=== PATIENT | male | born 1995 | race Caucasian/White ===

== ENCOUNTER 2022-02-03 06:40 | Emergency (ER) | payer BC ==
[~2022-02-03] VITALS: Ht 172.7 cm; Wt 103.4 kg
[2022-02-03 06:47] VITALS: BP_SYST 153
--- NOTE | 2022-02-03 06:51 | NUR ---
TOOK PATIENT TO ROOM 8, C/O RT FALNK PAIN PT STATED HE WOKE UP WITH PAIN RADIATES TO RLQ. DENIES N/V/D, DENIES FEVER,-DYSURIA.
--- NOTE | 2022-02-03 06:53 | NUR ---
REPORT GIVEN TO CARA.
[2022-02-03] MEDS ORDERED: KETOROLAC TROMETHAMINE 30 MG VIAL IVP ONE (07:00)
[2022-02-03] MEDS ORDERED: NACL 0.9% 1,000 ML IV ONE (07:00)
--- NOTE | 2022-02-03 07:30 | NUR ---
PATIENT CAME IN AT 0655 C/O SEVERE RIGHT FLANK PAIN, PIV INSERTED TO LEFT FORE ARM AND MEDICATED FOR PAIN ORDERED, BP 133/80, HR70,,RR35, O2SAT 100 ARDWSH34.7, ENDORSED TO AM RN
[2022-02-03 07:36] LABS: CALCIUM 8.9 mg/dL (8.4-11.0); CREATININE 1.03 mg/dL (0.55-1.30); POTASSIUM 3.4 mmol/L (3.5-5.1)
--- NOTE | 2022-02-03 07:41 | NUR ---
ER at bedside examining patient.
[2022-02-03 07:42] LABS: ALBUMIN 3.9 g/dL (3.4-4.8); TOTAL BILIRUBIN 1.2 mg/dL (0.0-1.0)
--- NOTE | 2022-02-03 07:45 | NUR ---
Assumed care of pt and pt is in bed connected to athletic monitor. VSS. Pt c/o right flank pain that started abruptly yesterday and rates pain 10/10 still even after getting toradol. NKA. No kown medical conditions. Pt is A&Ox4. No chest pain and no sob. Denies n/v. Bed in lowest posiiton.
[2022-02-03 07:59] LABS: BASOPHILS # (AUTO) 0.1 K/uL (0.0-0.2); BASOPHILS % (AUTO) 0.8 % (0.0-2.0); EOSINOPHILS # (AUTO) 0.1 K/uL (0.0-0.4); EOSINOPHILS % (AUTO) 1.6 % (0.0-4.0); LYMPHOCYTES # (AUTO) 2.1 K/uL (1.0-5.5); LYMPHOCYTES % (AUTO) 31.7 % (20.5-51.5); MONOCYTES # (AUTO) 0.5 K/uL (0.0-1.0); MONOCYTES % (AUTO) 8.2 % (1.7-9.3); NEUTROPHILS # (AUTO) 3.8 K/uL (1.8-7.7); NEUTROPHILS % (AUTO) 57.7 % (40.0-70.0); RED BLOOD CELL COUNT(AUTO) 5.55 MIL/uL (4.2-6.2); WHITE BLOOD COUNT (AUTO) 6.7 K/uL (4.8-10.8)
[2022-02-03] MEDS ORDERED: MORPHINE 4 MG INJ. 4 MG/ML VIAL IVP ONE ×2 (08:00→08:30)
[2022-02-03] MEDS ORDERED: PROCHLORPERAZINE EDISYLATE 10 MG/2 ML VIAL IVP ONE (08:00)
[2022-02-03 08:01] LABS: HEMOGLOBIN 16.6 g/dL (14.0-18.0); MEAN CORPUSCULAR HEMOGLOBIN 30 pg (27-31); MEAN CORPUSCULAR HGB CONC 35 % (32-36); MEAN CORPUSCULAR VOLUME 85 fL (79.0-98.0); PLATELET COUNT (AUTO) 188 K/uL (130-430); RED CELL DISTRIBUTION WIDTH 12.9 % (9.0-15.0)
--- NOTE | 2022-02-03 08:08 | NUR ---
Patient transported to radiology ambulatory with steady gait, accompanied by contact lens technician.
--- NOTE | 2022-02-03 08:12 | NUR ---
Returned from radiology, back to [facility].
[2022-02-03] MEDS ORDERED: DIPHENHYDRAMINE INJ 50 MG/ML VIAL IVP ONE (08:30)
[2022-02-03] MEDS ORDERED: HYDR-3917 PO (09:10)
[2022-02-03 09:19] VITALS: BP_SYST 128
--- NOTE | 2022-02-03 09:20 | NUR ---
Patient given written and verbal discharge instructions and verbalizes understanding. ER MD discussed with patient the results and treatment provided. Patient in stable condition. ID arm band removed. IV catheter removed intact and dressing applied, no active bleeding. Rx of [place] given. Patient educated on pain management and to follow up with PMD. Pain Scale 0/10. Opportunity for questions provided and answered. Medication side effect fact sheet provided.
== END 2022-02-03 09:19 | disposition home or self-care (01) ==
LOC: SED 06:40
DX: N23 Unspecified renal colic (principal); R11.2 Nausea with vomiting, unspecified; Z79.899 Other long term (current) drug therapy
CPT/HCPCS: 99284; 74176; 96374; 96375; 96361; 80053; 85025; 36415; 76376; J1200; J1885; J0780; J2270; J7030